=== PATIENT | female | born 1955 | race Caucasian/White ===

== ENCOUNTER 2018-08-05 17:39 | Emergency (ER) | payer OTHER ==
[~2018-08-05] VITALS: Wt 78.6 kg
--- NOTE | 2018-08-05 18:33 | ERD ---
ER Documentation Chief Complaint Chief Complaint COUGH AND FEVERS FOR THE PAST 4 DAYS. HPI The patient is a 62-year-old female, presenting to the ER because of cough, congestion for the last 4 days, complains of chest wall pain with cough, complains of fever today, denies headache, neck pain, chest pain, abdominal pain, vomiting, dysuria, diarrhea. She does not smoke nor drink Past medical history: CAD, dyslipidemia, hypertension Past surgical history: Placement and removal of pacemaker, cardiac ablation ROS All systems reviewed and are negative except as per history of present illness. Medications Home Meds Active Scripts Albuterol Sulfate* (Proair HFA*) 8.5 Gm Hfa.aer.ad, 2 PUFF INH Q4, #1 INHALER Prov:AL ARNOLD MD 08/05/18 Guaifenesin-Codeine Phosphate* (Robitussin* AC) 5 Ml Syrup, 10 ML PO Q6H PRN for COUGH, #120 ML Prov:AL ARNOLD MD 08/05/18 Azithromycin* (Zithromax*) 250 Mg Tablet, 250 MG PO .PARISCK DIRECTED, #6 TAB TAKE 500 MG (2 TABS) THE FIRST DAY THEN 250 MG (1 TAB) DAYS 2-5 Prov:AL ARNOLD MD 08/05/18 Amoxicillin/Potassium Clav (Amox-Clav 875-125 mg Tablet) 875-125 mg Tab, 1 TAB PO BID for 10 Days, #20 TAB Prov:AL ARNOLD MD 08/05/18 Reported Medications Aspirin* (Aspirin* EC) 81 Mg Tablet.dr, 81 MG PO DAILY, TAB 08/05/18 Verapamil Hcl* (Verapamil ER*) 100 Mg Cap24h.pel, 100 MG PO QAM, CAP 08/05/18 Atorvastatin Calcium (Atorvastatin Calcium) 10 Mg Tablet, 10 MG PO QHS, #30 TAB 08/05/18 Allergies Allergies: Coded Allergies: No Known Allergies (Verified Allergy, Unknown, 08/05/18) PMhx/Soc History of Surgery: Yes (PACEMAKER PLACED) Anesthesia Reaction: No Hx Neurological Disorder: No Hx Respiratory Disorders: No Hx Cardiac Disorders: Yes (HTN, [place]) Hx Psychiatric Problems: No Hx Miscellaneous Medical Probl: No Hx Alcohol Use: No Hx Substance Use: No Hx Tobacco Use: No Smoking Status: Never smoker Physical Exam Vitals Vital Signs Date Temp Pulse Resp B/P (MAP) Pulse Ox O2 O2 Flow FiO2 Time Delivery Rate 08/05/18 101.7 77 20 143/73 99 Room Air 21:18 (96) 08/05/18 75 20 99 Nasal 2.0 19:59 Cannula 08/05/18 101.7 80 20 139/68 99 Room Air 19:58 (91) 08/05/18 38.7 18:47 08/05/18 101.7 78 20 149/72 99 Room Air 18:44 (97) 08/05/18 101.7 85 24 197/98 98 Room Air 18:07 (131) 08/05/18 101.7 81 24 197/98 98 17:46 (131) Physical Exam Const: No acute distress. Head: Atraumatic. Eyes: Normal Conjunctiva. ENT: Normal External Ears, Nose and Mouth. Neck: Full range of motion. No meningismus. Resp: Bilateral expiratory wheezes, right basilar crackle. Cardio: Regular rate and rhythm. Abd: Soft, non distended, normal bowel sounds, non tender. Skin: No petechiae or rashes. Back: No midline or flank tenderness. Ext: No cyanosis, or edema. Neur: Awake and alert. No focal deficit Psych: Normal Mood and Affect. Result Diagram: 08/05/18 1801 08/05/18 180 Results 24 hrs Laboratory Tests Test 08/05/18 18:01 08/05/18 18:20 08/05/18 21:08 White Blood Count 9.1 10^3/ul Red Blood Count 4.24 10^6/ul Hemoglobin 11.7 g/dl Hematocrit 35.7 % Mean Corpuscular Volume 84.2 fl Mean Corpuscular Hemoglobin 27.6 pg Mean Corpuscular 32.8 g/dl Hemoglobin Concent Red Cell Distribution Width 15.3 % Platelet Count 264 10^3/UL Mean Platelet Volume 8.9 fl Immature Granulocytes % 0.300 % Neutrophils % 67.1 % Lymphocytes % 21.2 % Monocytes % 10.7 % Eosinophils % 0.4 % Basophils % 0.3 % Nucleated Red Blood Cells % 0.0 /100WBC Immature Granulocytes # 0.030 10^3/ul Neutrophils # 6.1 10^3/ul Lymphocytes # 1.9 10^3/ul Monocytes # 1.0 10^3/ul Eosinophils # 0.0 10^3/ul Basophils # 0.0 10^3/ul Nucleated Red Blood Cells # 0.0 10^3/ul Prothrombin Time 12.7 Sec Prothrombin Time Ratio 1.0 INR International 0.94 Normalized Ratio Activated Partial Thromboplast 27.4 Sec Time Sodium Level 139 mmol/L Potassium Level 3.9 mmol/L Chloride Level 106 mmol/L Carbon Dioxide Level 24 mmol/L Anion Gap 9 Blood Urea Nitrogen 9 mg/dl Creatinine 0.58 mg/dl Est Glomerular Filtrat > 60 mL/min Rate mL/min Glucose Level 159 mg/dl POC Venous Lactate 1.9 mmol/L 0.7 mmol/L Calcium Level 9.4 mg/dl Total Bilirubin 0.3 mg/dl Direct Bilirubin 0.00 mg/dl Indirect Bilirubin 0.3 mg/dl Aspartate Amino 29 IU/L Transf (AST/SGOT) Alanine 19 IU/L Aminotransferase (ALT/SGPT) Alkaline Phosphatase 101 IU/L Troponin I < 0.012 ng/ml Total Protein 7.4 g/dl Albumin 4.1 g/dl Globulin 3.30 g/dl Albumin/Globulin Ratio 1.24 Urine Color YELLOW Urine Clarity CLEAR Urine pH 6.0 Urine Specific [place] 1.014 Urine Ketones NEGATIVE mg/dL Urine Nitrite NEGATIVE mg/dL Urine Bilirubin NEGATIVE mg/dL Urine Urobilinogen 1+ mg/dL Urine Leukocyte Esterase NEGATIVE David/ul Urine Microscopic RBC 18 /HPF Urine Microscopic WBC 4 /HPF Urine Bacteria FEW /HPF Urine Mucus FEW /HPF Urine Hemoglobin 2+ mg/dL Urine Glucose NEGATIVE mg/dL Urine Total Protein NEGATIVE mg/dl Current Medications Medications Dose Sig/Fuad Start Time Status Last (Trade) Ordered Route PRN Stop Time Admin Dose Reason Admin 650 mg ONCE ONCE 08/05/18 DC 08/05/18 Acetaminophen PO 19:00 18:47 (Tylenol 08/05/18 19:01 Tab) 325 mg STK-MED 08/05/18 DC Acetaminophen ONCE .ROUTE 18:43 (Tylenol 08/05/18 18:44 Tab) Promethazine 10 ml ONCE ONCE 08/05/18 DC 08/05/18 HCl/ PO 19:30 19:15 Codeine 08/05/18 19:31 (Phenergan/ Codeine) Ceftriaxone 50 ml @ ONCE ONCE 08/05/18 DC 08/05/18 Sodium 100 mls/hr IVPB 19:30 19:15 08/05/18 19:59 Azithromycin 250 ml @ ONCE ONCE 08/05/18 DC 08/05/18 250 mls/hr IVPB 19:30 19:37 08/05/18 20:29 1.25 mg ONCE ONCE 08/05/18 DC 08/05/18 Levalbuterol HHN 19:30 19:59 (Xopenex 08/05/18 19:31 Neb) Ipratropium 0.5 mg ONCE ONCE 08/05/18 DC 08/05/18 [place] HHN 19:30 19:59 (Atrovent 08/05/18 19:31 0.02% (Neb)) Procedures/[place] [address] Radiology Main Line: [phone] DIAGNOSTIC IMAGING REPORT Patient: MARILUZ GIBBS : 1955 Age: 62 Sex: F MR #: [id number] DOS: 08/05/18 1750 Ordering MD: AL ARNOLD MD Location: E/R Room/Bed: PROCEDURE: XR Chest. CLINICAL INDICATION: Possible sepsis TECHNIQUE: Single frontal view of the chest was obtained COMPARISON: None FINDINGS: Atherosclerotic calcification of the aorta. Enlarged cardiac silhouette. Right lower lung zone patchy airspace disease. No pleural effusion or pneumothorax. No acute osseous abnormality. Degenerative change of the thoracic spine. Rotator cuff fixation anchor in the right humeral head. IMPRESSION: 1. Right lower lung zone patchy airspace disease compatible with pneumonia. Recommend follow up to resolution. 2. Cardiomegaly. Atherosclerotic calcification of the aorta. RPTAT: AATT Physician Devin Date Time Electronically viewed and signed by Marivel Pavon Physician on 08/06/19 18:39 RG/ CC: AL ARNOLD MD [phone] EKG: Read by emergency physician Rate/Rhythm: Normal Sinus Rhythm 79 beats/min QRS, ST, T-waves: No ST elevation, no T inversion Impression: Normal EKG MEDICAL MAKING DECISION: The patient is a 62-year-old female, presenting with acute pneumonia, was treated with Tylenol for fever, Phenergan with codeine 10 mL p.o. for cough, Zithromax IV and Rocephin IV for acute pneumonia, Xopenex 1.25 mg Atrovent 0.5 mg nebulizer for wheezing with good response The differential diagnoses considered include but are not limited to asthma, COPD, pneumonia, pulmonary embolus, pleural effusion, congestive heart failure. Departure Diagnosis: Primary Impression: PNA (pneumonia) Additional Impression: Anemia Condition: Good Comments She was discharged with Augmentin, Zithromax, Phenergan with codeine and albuterol MDI I discussed the findings with the patient. I advised the patient to follow-up with the primary physician in about 2-3 days, sooner if needed and return if any concern. Disclaimer: Inadvertent spelling and grammatical errors are likely due to EHR/dictation software use and do not reflect on the overall quality of patient care. Also, please note that the electronic time recorded on this note does not necessarily reflect the actual time of the patient encounter. AL ARNOLD MD Aug 05, 2018 18:33
[2018-08-05] MEDS ORDERED: ACETAMINOPHEN 325 MG TAB ONE (18:43)
[2018-08-05] MEDS ORDERED: ACETAMINOPHEN 325 MG TAB PO ONE (19:00)
[2018-08-05] MEDS ORDERED: AZIT250T PO (19:25)
[2018-08-05] MEDS ORDERED: AMOX1TAB10 PO (19:25)
[2018-08-05] MEDS ORDERED: ALBU8.5H8 INH (19:28)
[2018-08-05] MEDS ORDERED: CODE5LIQ2 PO (19:28)
[2018-08-05] MEDS ORDERED: PROMETHAZINE/CODEINE 5ML CUP PO ONE (19:30)
[2018-08-05] MEDS ORDERED: LEVALBUTEROL (NEB) 1.25 MG/0.5 ML AMP HHN ONE (19:30)
[2018-08-05] MEDS ORDERED: IPRATROPIUM (NEB) 0.5 MG/2.5 ML AMP HHN ONE (19:30)
[2018-08-05] MEDS ORDERED: CEFTRIAXONE 1 GM/50 ML (PMX) 50 ML IVPB ONE (19:30)
[2018-08-05] MEDS ORDERED: AZITHROMYCIN 500MG/NS (PMX) 250 ML IVPB ONE (19:30)
[2018-08-05] MEDS ORDERED: VERA100C4 PO (20:03)
[2018-08-05] MEDS ORDERED: ASPI-817 PO (20:03)
[2018-08-05] MEDS ORDERED: ATOR10TA65 PO (20:03)
[2018-08-05 21:18] VITALS: BP 143/73; PULSE 77; RESP 20
== END 2018-08-05 21:19 | disposition home or self-care (01) ==
LOC: E/R 17:39
DX: J18.9 Pneumonia, unspecified organism (principal); D64.9 Anemia, unspecified; I25.10 Atherosclerotic heart disease of native coronary artery without angina pectoris; I10 Essential (primary) hypertension; I25.2 Old myocardial infarction; R07.89 Other chest pain; R50.9 Fever, unspecified; Z95.0 Presence of cardiac pacemaker; Z79.82 Long term (current) use of aspirin
CPT/HCPCS: 36415; 71045; 80053; 81001; 83605; 84484; 85025; 85610; 85730; 87040; 87086; 93005; 94664; 96374; 96375; 99285; J0456; J0696